=== PATIENT | male | born 1930 | race Caucasian/White ===

== ENCOUNTER 2016-07-07 12:15 | Emergency (ER) | payer OTHER, MEDICARE ==
[2016-07-07 12:27] VITALS: BP 138/100; PULSE 67; RESP 18; TEMP 97.5; O2SAT 98
[2016-07-07 12:47] LABS: COLOR BROWN; LEUKOCYTE ESTERASE,URINE TRACE (NEGATIVE); NITRITE,URINE NEGATIVE (NEGATIVE); PH,URINE 6.5 (5.0-7.5)
[2016-07-07 13:07] LABS: BACTERIA TRACE /hpf (NONE SEEN); RBC,URINE >182 /hpf (0-3)
--- NOTE | 2016-07-07 13:07 | UCPHY ---
H & P Time Seen by Provider: 07/07/16 12:24 Patient Type: Established HPI/ROS: This patient has gross hematuria. This is attributable to a known bladder stone. Patient is scheduled of the stone removed via urology next week. His son brought the patient in today concerned that he might have anemia from the hematuria. The patient has no new symptoms but given that he has had gross hematuria for more than a week the patient's son was concerned about potential significant blood loss. A review of records reveals a normal H&H on 06/04/2016 for this patient. ROS: Constitutional: No new fatigue HEENT no complaints pulmonary: No dyspnea. cardiovascular: No lightheadedness. GI: No nausea or vomiting : No dysuria. and 7 point ROS is otherwise negative Past Medical/Surgical History: Bladder stone Smoking Status: Never smoked Physical Exam: General Appearance: Alert, no distress. Eyes: Pupils equal and round no pallor or injection. ENT, Mouth: Mucous membranes moist. There is no conjunctival pallor when I invert his eyelid. Respiratory: There are no retractions, lungs are clear to auscultation. Cardiovascular: Regular rate and rhythm. Gastrointestinal: Abdomen is soft and nontender, no masses, bowel sounds normal. Neurological: Alert with no focal deficits Skin: Warm and dry, no rashes. No pallor or diaphoresis. Musculoskeletal: Neck is supple nontender. Extremities are symmetrical, full range of motion. Psychiatric: Mood and affect are normal Constitutional: Initial Vital Signs Temperature (C) 36.4 C 07/07/16 12:26 Heart Rate 67 07/07/16 12:26 Respiratory Rate 18 07/07/16 12:26 Blood Pressure 138/100 H 07/07/16 12:26 O2 Sat (%) 98 07/07/16 12:26 O2 Delivery Mode Room Air Allergies/Adverse Reactions: codeine [Codeine] Allergy (Severe, Verified 09/15/15 10:22) FLU LIKE SYMPTOMS Sulfa (Sulfonamide Antibiotics) Allergy (Intermediate, Verified 09/15/15 10:22) PASSED OUT Home Medications: Medication Instructions Recorded Atorvastatin Calcium [Lipitor 40 40 mg PO HS 02/20/12 mg (*)] Glucosamine Sulfate [Glucosamine 500 mg PO DAILY 02/20/12 Sulfate 500 MG (*)] Herbals/Supplements -Info Only 1 each PO AD 02/20/12 Levothyroxine [Synthroid 75 mcg 75 mcg PO DAILY06 02/20/12 (*)] [place]-3 Fatty Acids [Fish Oil 1000 1,000 mg PO DAILY 02/20/12 mg (*)] Aspirin EC [Aspirin EC 325 mg (*)] 325 mg PO DAILY #0 tab 04/09/12 Acetaminophen [Tylenol 325mg (*)] 650 mg PO Q4 05/28/12 Calcium Citrate W/Vit D [Citracal 315 mg PO DAILY 05/28/12 + D] Metoprolol Tartrate 25 mg PO BID 05/28/12 Sennosides [Senna] 1 tab PO BID 05/28/12 MDM/Departure - [facility] ED Course/Re-evaluation: Discussion: Given normal H&H last month I do not think a week's worth of microscopic and gross hematuria will cause significant anemia and clinically this patient does not manifest findings of anemia-no skin pallor conjunctiva pallor, lightheadedness, tachycardia or other concerning findings. I do not think he warrants further workup at this time and I counseled the patient regarding this - Depart Disposition: Home, Routine, Self-Care Clinical Impression: Hematuria Instructions: Hematuria (ED) Additional Instructions: Diagnosis: Hematuria The urinalysis shows findings that are consistent with her bladder stone. Clinically I do not think that you have significant anemia today. Plan: Drink plenty fluids to flush your bladder Follow up with your urologist as planned Referrals: Jose Cheek MD [Primary Care Provider] - As per Instructions - PQRS PQRS Measurement: 134: Depression screening and followup, PRIME MD-PHQ2 (12 years and older) Over the last 2 weeks, how often have you been bothered by any of the following problems? 1. Feeling down, depressed, or hopeless? 2. Little interest or pleasure in doing things? Patient answered no to both 1 and 2 130: Documentation of medications. Reviewed all patient medications, doses, route and frequency. 226: Do you smoke? [No.] 47: 65 and older: Advanced care planning. Patient designates surrogate decision maker as his Son 51: 18 years old and older with diagnosis of COPD, spirometry performance. NA 52: 18 years old and older with COPD and symptoms of COPD or FEV1<60% predicted prescribed a B Agonist. ATIF
== END 2016-07-07 13:17 | disposition home or self-care (01) ==
LOC: CED 12:15
DX: R31.0 Gross hematuria (principal); N21.0 Calculus in bladder
CPT/HCPCS: 81003-PO; 81015-PO; 99214-PO; G0463-PO

== ENCOUNTER 2016-07-18 02:42 | Emergency (ER) | payer OTHER, MEDICARE ==
[2016-07-18 02:57] VITALS: TEMP 98.6
--- NOTE | 2016-07-18 03:03 | EDPHY ---
H & P Stated Complaint: blocked catheter procedure in last 24 hr HPI/ROS: HPI CHIEF COMPLAINT: Problems with Seay catheter HISTORY OF PRESENT ILLNESS: This patient very pleasant 86-year-old male significant past medical history for TIA, AFib, coronary artery disease, hypertension, hyperlipidemia who had a procedure done today at [facility] by Dr. Ira Gonzalez to have a bladder stone removed. According to the family this procedure went well he got home around 3 o'clock in the afternoon he did eat dinner and has been resting he has been drinking fluids appropriately at home. Later in the evening around midnight 1:00 one a.m. he started developing lower abdominal pain around his bladder described as spasms as well as great irritation of the Seay catheter. He kept feeling urgency to urinate and was unable to do so. They decided to bring him here to the emergency room. Upon arrival here in the emergency room the patient appears well he has no complaints he states he has no abdominal pain. He did have a bladder scan that showed 200+ cc of urine in his bladder there is dark blood in his Seay bag. He is not vomiting he has no nausea has no chest pain or shortness of breath and is acting appropriately according to his daughter at bedside. Past Medical History: Multiple significant medical problems including history of TIA, AFib, coronary artery disease, hypertension, hyperlipidemia Past Surgical History: Recent bladder surgery today to remove the stone Social History: lives locally, denies drugs alcohol tobacco products Family History: Noncontributory ROS REVIEW OF SYSTEMS: A comprehensive 10 point review of systems is otherwise negative aside from elements mentioned in the history of present illness. Exam Constitutional triage nursing summary reviewed, vital signs reviewed, awake/ alert. Eyes normal conjunctivae and sclera, EOMI, PERRLA. HENT normal inspection, atraumatic, moist mucus membranes, no epistaxis, neck supple/ no meningismus, no raccoon eyes. Respiratory clear to auscultation bilaterally, normal breath sounds, no respiratory distress, no wheezing. Cardiovascular rate normal, regular rhythm, no murmur, no edema, distal pulses normal. Gastrointestinal soft, non-tender, no rebound, no guarding, normal bowel sounds, no distension, no pulsatile mass. Genitourinary no CVA tenderness. Musculoskeletal no midline vertebral tenderness, full range of motion, no calf swelling, no tenderness of extremities, no meningismus, good pulses, neurovascularly intact. Skin pink, warm, & dry, no rash, skin atraumatic. Neurologic awake, alert and oriented x 3, AAOx3, moves all 4 extremities equally, motor intact, sensory intact, CN II-XII intact, normal cerebellar, normal vision, normal speech. Psychiatric normal mood/affect. Heme/Lymph/Immune no lymphadenopathy. Differential Diagnosis:Includes but is not limited to in a particular order urinary outflow obstruction, Seay catheter obstruction, hematuria, kidney failure Medical Decision Making: This patient had IV established he did receive IV fluids, we checked blood work his creatinine is slightly elevated 1.4 however not far from his baseline we did flush his Seay catheter and 200 cc were removed he did appear to have a clot in his Seay catheter. He is resting comfortably has no complaints no fever no abdominal pain he is requesting be discharged home. He has an appointment today at [facility] at 11:00 a.m. to have his Seay catheter removed. They did request if I could remove his catheter here however I will defer him to his urologist have his catheter removed. Source: Patient - Personal History Current Tetanus/Diphtheria Vaccine: Unsure Current Tetanus Diphtheria and Acellular Pertussis (TDAP): Unsure Tetanus Vaccine Date: >10 YRS - Medical/Surgical History Hx Asthma: No Hx Chronic Respiratory Disease: No Hx Diabetes: No Hx Cardiac Disease: Yes Hx Renal Disease: No Hx Cirrhosis: No Hx Alcoholism: No Hx HIV/AIDS: No Hx Splenectomy or Spleen Trauma: No Other PMH: bladder stone. avr. bypass x2. skin ca - Social History Smoking Status: Never smoked Constitutional: Initial Vital Signs Temperature (C) 37 C 07/18/16 02:51 Heart Rate 81 07/18/16 02:51 Respiratory Rate 17 07/18/16 02:51 Blood Pressure 115/65 07/18/16 02:51 O2 Sat (%) 92 07/18/16 02:51 O2 Delivery Mode Room Air Allergies/Adverse Reactions: codeine [Codeine] Allergy (Severe, Verified 09/15/15 10:22) FLU LIKE SYMPTOMS Sulfa (Sulfonamide Antibiotics) Allergy (Intermediate, Verified 09/15/15 10:22) PASSED OUT Home Medications: Medication Instructions Recorded Atorvastatin Calcium [Lipitor 40 40 mg PO HS 02/20/12 mg (*)] Glucosamine Sulfate [Glucosamine 500 mg PO DAILY 02/20/12 Sulfate 500 MG (*)] Herbals/Supplements -Info Only 1 each PO AD 02/20/12 Levothyroxine [Synthroid 75 mcg 75 mcg PO DAILY06 02/20/12 (*)] Cast[place]-3 Fatty Acids [Fish Oil 1000 1,000 mg PO DAILY 02/20/12 mg (*)] Acetaminophen [Tylenol 325mg (*)] 650 mg PO Q4 05/28/12 Calcium Citrate W/Vit D [Citracal 315 mg PO DAILY 05/28/12 + D] Metoprolol Tartrate 25 mg PO BID 05/28/12 Sennosides [Senna] 1 tab PO BID 05/28/12 Pradaxa 07/18/16 Medical Decision Making - Data Points Laboratory Results: Laboratory Results 07/18/16 03:25 07/18/16 03:25 07/18/16 03:25 WBC 9.01 10^3/uL (3.80-9.50) RBC 4.62 10^6/uL (4.40-6.38) Hgb 14.7 g/dL (13.7-17.5) Hct 43.4 % (40.0-51.0) MCV 93.9 fL (81.5-99.8) MCH 31.8 pg (27.9-34.1) MCHC 33.9 g/dL (32.4-36.7) RDW 12.8 % (11.5-15.2) Plt Count 152 10^3/uL (150-400) MPV 9.5 fL (8.7-11.7) Neut % (Auto) 73.2 % (39.3-74.2) Lymph % (Auto) 14.9 L % (15.0-45.0) [place] % (Auto) 10.3 % (4.5-13.0) Eos % (Auto) 1.0 % (0.6-7.6) Baso % (Auto) 0.2 L % (0.3-1.7) Nucleat RBC Rel Count 0.0 % (0.0-0.2) Absolute Neuts (auto) 6.59 H 10^3/uL (1.70-6.50) Absolute Lymphs (auto) 1.34 10^3/uL (1.00-3.00) Absolute Monos (auto) 0.93 H 10^3/uL (0.30-0.80) Absolute Eos (auto) 0.09 10^3/uL (0.03-0.40) Absolute Basos (auto) 0.02 10^3/uL (0.02-0.10) Absolute Nucleated RBC 0.00 10^3/uL (0-0.01) Immature Gran % 0.4 % (0.0-1.1) Immature Gran # 0.04 10^3/uL (0.00-0.10) Sodium 142 mEq/L (134-144) Potassium 5.0 mEq/L (3.5-5.2) Chloride 110 mEq/L (97-110) Carbon Dioxide 21 L mEq/l (22-31) Anion Gap 11 mEq/L (8-16) BUN 26 H mg/dL (7-23) Creatinine 1.4 H mg/dL (0.7-1.3) Estimated GFR 48 Glucose 109 H mg/dL (70-100) Calcium 9.0 mg/dL (8.5-10.4) Medications Given: Discontinued Medications Sodium Chloride (Ns) 1,000 mls @ 0 mls/hr IV ONCE ONE PRN Reason: Wide Open Stop: 07/18/16 03:18 Last Admin: 07/18/16 03:43 Dose: 1,000 mls Departure - Departure Disposition: Home, Routine, Self-Care Clinical Impression: Obstruction of Seay catheter Qualifiers: Encounter type: initial encounter Qualifier Code: (T83.091A) Other mechanical complication of indwelling urethral catheter, initial encounter Condition: Good Instructions: Seay Catheter Placement and Care (ED) Additional Instructions: 1. Please return to the emergency room if develops any worsening symptoms includes worsening abdominal pain, fever, vomiting. 2. please follow up with your urologist. Referrals: Jose Cheek MD [Primary Care Provider] - As per Instructions
[2016-07-18] MEDS ORDERED: NS 1,000 ML IV ONE (03:17)
[2016-07-18 03:59] LABS: % IMMATURE GRANULYOCYTES 0.4 % (0.0-1.1); ABSOLUTE IMMATURE GRANULOCYTES 0.04 10^3/uL (0.00-0.10); ADD DIFF? NO; ADD MORPH? NO; ADD SCAN? NO; ATYPICAL LYMPHOCYTE FLAG 0 (0-99); FRAGMENT RBC FLAG 0 (0-99); HEMATOCRIT 43.4 % (40.0-51.0); HEMOGLOBIN 14.7 g/dL (13.7-17.5); LEFT SHIFT FLG 0 (0-99); LIPEMIA HEMOLYSIS FLAG 90 (0-99); MEAN CELL HEMOGLOBIN 31.8 pg (27.9-34.1); MEAN CELL HEMOGLOBIN CONCENTR. 33.9 g/dL (32.4-36.7); MEAN CELL VOLUME 93.9 fL (81.5-99.8); MEAN PLATELET VOLUME 9.5 fL (8.7-11.7); PLATELET CLUMPS FLAG 10 (0-99); PLATELET COUNT 152 10^3/uL (150-400); RED BLOOD CELL COUNT 4.62 10^6/uL (4.40-6.38); RED CELL DISTRIBUTION WIDTH 12.8 % (11.5-15.2)
[2016-07-18 04:08] LABS: ANION GAP 11 mEq/L (8-16); CARBON DIOXIDE 21 mEq/l (22-31); CHLORIDE 110 mEq/L (97-110); CREATININE 1.4 mg/dL (0.7-1.3); GLOMERULAR FILTRATION RATE 48; GLUCOSE 109 mg/dL (70-100); SODIUM 142 mEq/L (134-144)
[2016-07-18 05:29] VITALS: BP 141/84; PULSE 74; RESP 18; O2SAT 95
== END 2016-07-18 05:50 | disposition home or self-care (01) ==
DX: T83.091A Other mechanical complication of indwelling urethral catheter, initial encounter (principal); I10 Essential (primary) hypertension; I25.10 Atherosclerotic heart disease of native coronary artery without angina pectoris; Z85.828 Personal history of other malignant neoplasm of skin; Z79.01 Long term (current) use of anticoagulants; Y82.8 Other medical devices associated with adverse incidents

== ENCOUNTER 2017-03-30 16:16 | Emergency (ER) | payer OTHER, MEDICARE ==
[2017-03-30 16:23] VITALS: TEMP 97.9
--- NOTE | 2017-03-30 16:54 | EDPHY ---
H & P Stated Complaint: cough x 1 week HPI/ROS: CHIEF COMPLAINT: Cough for 2 weeks HISTORY OF PRESENT ILLNESS: The patient is an 87 y/o male who complains of a cough for 1 week.He has a history of a TIA, Afib, CAD, hypertension, and hyperlipidemia. His daughter notes he has been coughing constantly for the last 2 weeks. She also notes he had a runny nose, but this has stopped. For less than 1 week he has also been weak, falling more frequently, and not eating or drinking much. His daughter also notes increasing confusion. His daughter does not believe he has had a flu shot this year. Denies fever, chest pain, shortness of breath, abdominal pain, vomiting, diarrhea. diabetes or other pertinent symptoms. Obtained most the medical history via his daughter at bedside. Prior medial records reviewed including ED visit on 07/18/[address] Arnold. REVIEW OF SYSTEMS: A ten point review of systems was performed and is negative with the exception of the items mentioned in the HPI. 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 Vital signs reviewed. Blood pressure 126/83 at triage. Eyes: Pupils equal and round, no conjunctival injection, no discharge. Anicteric. ENT, Mouth: No oropharyngeal erythema or edema. Oral mucosa is tacky. Neck: No lymphadenopathy, supple. Respiratory: Breath sounds are distant. No wheezes, rales, or rhonchi. Cardiovascular: Regular rate and rhythm; no murmur, rub, or gallop. Gastrointestinal: Abdomen is soft and nontender, no masses or organomegaly, bowel sounds normal. Skin: Warm and dry, no rashes on exposed skin, normal color. Back: Nontender to palpation over the thoracolumbar spine. No CVAT. Extremities: No lower extremity edema, no calf tenderness or swelling. Neurological: Alert and oriented to person, place, and year. Moving all four extremities easily and equally. Facial expressions symmetric. Tongue midline. Extraocular movements full. Psychiatric: Normal affect. No agitation. - Personal History Current Tetanus/Diphtheria Vaccine: Yes Tetanus Vaccine Date: >10 YRS - Medical/Surgical History Hx Asthma: No Hx Chronic Respiratory Disease: No Hx Diabetes: No Hx Cardiac Disease: Yes Hx Renal Disease: No Hx Cirrhosis: No Hx Alcoholism: No Hx HIV/AIDS: No Hx Splenectomy or Spleen Trauma: No Other PMH: bladder stone. avr. bypass x2. skin ca - Social History Smoking Status: Never smoked Constitutional: Initial Vital Signs Temperature (C) 36.6 C 03/30/17 16:20 Heart Rate 68 03/30/17 16:20 Respiratory Rate 18 03/30/17 16:20 Blood Pressure 126/83 H 03/30/17 16:20 O2 Sat (%) 95 03/30/17 16:20 O2 Delivery Mode Room Air Allergies/Adverse Reactions: codeine [Codeine] Allergy (Severe, Verified 03/30/17 16:19) FLU LIKE SYMPTOMS Sulfa (Sulfonamide Antibiotics) Allergy (Intermediate, Verified 03/30/17 16:19) PASSED OUT Home Medications: Medication Instructions Recorded Atorvastatin Calcium [Lipitor 40 40 mg PO HS 02/20/12 mg (*)] Glucosamine Sulfate [Glucosamine 500 mg PO DAILY 02/20/12 Sulfate 500 MG (*)] Herbals/Supplements -Info Only 1 each PO AD 02/20/12 Levothyroxine [Synthroid 75 mcg 75 mcg PO DAILY06 02/20/12 (*)] [place]-3 Fatty Acids [Fish Oil 1000 1,000 mg PO DAILY 02/20/12 mg (*)] Acetaminophen [Tylenol 325mg (*)] 650 mg PO Q4 05/28/12 Calcium Citrate W/Vit D [Citracal 315 mg PO DAILY 05/28/12 + D] Metoprolol Tartrate 25 mg PO BID 05/28/12 Sennosides [Senna] 1 tab PO BID 05/28/12 Medical Decision Making - Diagnostics Imaging: I viewed and interpreted images myself ED Course/Re-evaluation: The patient is an 87 y/o male who presents with 1 week of cough. On exam he has distant breath sounds and tacky mucous membranes. His daughter notes he has been weak, falling, and exhibiting declining cognition (difficulty--figuring out what to do with his pills i.e. whether to chew or swallow them and so on). Checking labs, chest x-ray, and 500 mL of IV normal saline administered. He does not meet sepsis criteria. 1800: Chest x-ray shows there is a possible early congestive failure centrally. No infiltrates. 1814: Patient re-evaluated. He is resting, awakens easily. I relayed chest x- ray findings to patient and his daughter. Awaiting results of respiratory pathogen PCR. 1919: PCR shows the patient has parainfluenza virus type 1. BUN and creatinine elevated. His creatinine has been elevated in the past. I feel that he is mildly dehydrated. White blood cell count is elevated at 13, 000. 1923: Reassessed patient and discussed laboratory results. His daughter feels comfortable with caring for him at home. I think that he is relatively fragile and discussed the danger signs that should prompt them to return to the emergency department. They will follow up with Dr. Cheek in the next 1-2 days. Return precautions discussed; patient and his daughter are comfortable with this plan. Differential Diagnosis: I considered a differential diagnosis including but not limited to pulmonary or other infectious process, COPD, asthma, pulmonary embolus and congestive heart failure. - Data Points Laboratory Results: Laboratory Results 03/30/17 16:45 03/30/17 16:45 Medications Given: Discontinued Medications Sodium Chloride (Ns) 500 mls @ 1,000 mls/hr IV EDNOW ONE PRN Reason: Protocol Stop: 03/30/17 17:45 Last Admin: 03/30/17 17:21 Dose: 500 mls Departure - Departure Disposition: Home, Routine, Self-Care Clinical Impression: Parainfluenza type 1 infection, Upper respiratory virus Condition: Good Instructions: Upper Respiratory Infection (ED), Viral Syndrome (ED) Additional Instructions: 1. Follow up with Dr. Cheek in the next 2 days. 2. Drink plenty of fluids and make sure to eat. 3. Return to the emergency department immediately for high fever, severe headache or neck pain, difficulty breathing, abdominal pain, rash or other worsening of condition. Referrals: Jose Cheek MD [Primary Care Provider] - As per Instructions Report Scribed for: Peggy Maynard Report Scribed by: Alpa Rosenbaum Date of Report: 03/30/17 Time of Report: 16:56 Physician Review and Approval Statement: 03/30/17 16:54 Portions of this note were transcribed by the medical director occupational health. I, Dr. Peggy Maynard, personally performed the history, physical exam, and medical decision- making; and confirmed the accuracy of the information in the transcribed note.
[2017-03-30] MEDS ORDERED: NS 500 ML IV ONE (17:16)
[2017-03-30 17:21] LABS: % IMMATURE GRANULYOCYTES 0.5 % (0.0-1.1); ABSOLUTE IMMATURE GRANULOCYTES 0.07 10^3/uL (0.00-0.10); ADD DIFF? NO; ADD MORPH? NO; ADD SCAN? NO; ATYPICAL LYMPHOCYTE FLAG 10 (0-99); FRAGMENT RBC FLAG 0 (0-99); HEMATOCRIT 43.1 % (40.0-51.0); HEMOGLOBIN 14.3 g/dL (13.7-17.5); LEFT SHIFT FLG 20 (0-99); LIPEMIA HEMOLYSIS FLAG 80 (0-99); MEAN CELL HEMOGLOBIN 31.9 pg (27.9-34.1); MEAN CELL HEMOGLOBIN CONCENTR. 33.2 g/dL (32.4-36.7); MEAN CELL VOLUME 96.2 fL (81.5-99.8); MEAN PLATELET VOLUME 9.7 fL (8.7-11.7); PLATELET CLUMPS FLAG 0 (0-99); PLATELET COUNT 203 10^3/uL (150-400); RED BLOOD CELL COUNT 4.48 10^6/uL (4.40-6.38); RED CELL DISTRIBUTION WIDTH 13.2 % (11.5-15.2)
[2017-03-30 17:22] VITALS: RESP 16
[2017-03-30 17:26] LABS: ANION GAP 12 mEq/L (8-16); CALCIUM 9.2 mg/dL (8.5-10.4); CARBON DIOXIDE 24 mEq/l (22-31); CHLORIDE 106 mEq/L (97-110); CREATININE 1.5 mg/dL (0.7-1.3); GLOMERULAR FILTRATION RATE 44; GLUCOSE 101 mg/dL (70-100); POTASSIUM 4.7 mEq/L (3.5-5.2); SODIUM 142 mEq/L (134-144)
[2017-03-30 19:49] VITALS: BP 120/73; PULSE 73; O2SAT 93
== END 2017-03-30 19:49 | disposition home or self-care (01) ==
DX: J06.9 Acute upper respiratory infection, unspecified (principal); B34.8 Other viral infections of unspecified site; I10 Essential (primary) hypertension; I25.810 Atherosclerosis of coronary artery bypass graft(s) without angina pectoris; E86.9 Volume depletion, unspecified

== ENCOUNTER → 2017-04-30 | Outpatient (CLI) | payer OTHER, MEDICARE | PROVIDERS: ATTEND Family Medicine Sports Medicine | DX: R13.10 Dysphagia, unspecified (principal) | CPT/HCPCS: 74230; 92611; G8996; G8997; G8998 ==